=== PATIENT | female | born 1965 | race Caucasian/White ===

== ENCOUNTER 2020-04-01 13:15 | Outpatient (CLI) | payer BC, SELFPAY ==
--- NOTE | ~2020-04-01 | MM_ITS ---
EXAMINATION: MM screening gauri BI w patt HISTORY: Screening mammogram TECHNIQUE: Craniocaudal and mediolateral oblique 3-D tomosynthesis images were obtained and synthetic 2-D images were generated. CAD analysis was submitted and interpreted. COMPARISON: 03/18/2019, 03/15/2018, 02/08/2017 bilateral digital screening mammogram examinations BREAST PARENCHYMAL COMPOSITION: There are scattered areas of fibroglandular density. FINDINGS: Stable benign intramammary lymph nodes. There is no evidence of suspicious mass, calcificat ion, or architectural distortion to suggest malignancy in either breast. There has been no suspicious interval change. IMPRESSION: 1. No mammographic evidence of malignancy. 2. Recommend routine screening mammography in one year. BI-RADS Category 2: Benign finding(s). Reviewed, dictated and finalized at location A.
== END 2020-04-01 13:16 | disposition home or self-care (01) ==
LOC: ANHIMG 13:19
PROVIDERS: PCP Internal Medicine; Visit Provider Nurse Practitioner
DX: Z12.31 Encounter for screening mammogram for malignant neoplasm of breast (principal)
CPT/HCPCS: 77063; 77067

== ENCOUNTER 2021-06-01 08:49 | Outpatient (CLI) | payer BC, SELFPAY ==
--- NOTE | ~2021-06-01 | MM_ITS ---
EXAMINATION: MM screening gauri BI w patt HISTORY: Screening TECHNIQUE: Craniocaudal and mediolateral oblique 3-D tomosynthesis images were obtained and synthetic 2-D images were generated. CAD analysis was submitted and interpreted. COMPARISON: Comparison to multiple prior studies sequentially, with oldest reviewed study dated 06/14. BREAST PARENCHYMAL COMPOSITION: There are scattered areas of fibroglandular density. FINDINGS: There is no evidence of suspicious mass, calcification, or architectural distortion to sugg est malignancy in either breast. There has been no suspicious interval change. IMPRESSION: 1. No mammographic evidence of malignancy. 2. Recommend routine screening mammography in one year. BI-RADS Category 1: Negative Reviewed, dictated and finalized at location A. 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
--- NOTE | ~2021-06-01 | DEXA_ITS ---
Bone Density Report Name: RAHEL OWENS Age: 56 Sex: Female Ethnicity: White Date of : 1965 Indication: postmenopausal; asthma or emphysema; Referring Provider: PRABHU, BRIAN Study: Bone densitometry was performed. Exam Date: June 01, 2021 Accession number: [id number] Bone Density: Region BMD T-score Z-score Classification AP Spine (L2, L3, L4) 1.223 1.3 2.5 Normal Femoral Neck (Left) 0.975 1.1 2.2 Normal Total Hip (Left) 1.246 2.5 3.2 Normal Total Hip Bilateral Avg 1.240 2.5 3.1 Normal Femoral Neck (Right) 0.998 1.3 2.4 Normal Total Hip (Right) 1.233 2.4 3.1 Normal World Health Organization criteria for BMD impression classify patients as: Normal (T-score at or above -1.0), Osteopenia (T-score between -1.0 and -2.5), or Osteoporosis (T-score at or below -2.5). 10-year Fracture Risk: FRAX not reported because: All T-scores for Spine Total, Hip Total, Femoral Neck at or above -1.0 Previous Exams: Region Exam Age BMD T-score BMD Change BMD Change Date g/cm2 vs Baseline vs Previous AP Spine(L2, L3, L4) 06/01/2021 56 1.223 1.3 -0.108(-8.1%)* -0.014(-1.1%) 05/30/2017 52 1.237 1.4 -0.094(-7.0%)* -0.094(-7.0%)* 05/03/2012 46 1.330 2.3 Total Hip(Left) 06/01/2021 56 1.246 2.5 -0.007(-0.6%) 0.002(0.2%) 05/30/2017 52 1.244 2.5 -0.010(-0.8%) -0.010(-0.8%) 05/03/2012 46 1.253 2.6 Total Hip(Right) 06/01/2021 56 1.233 2.4 -0.036(-2.8%)* -0.053(-4.1%)* 05/30/2017 52 1.286 2.8 0.017(1.3%) 0.017(1.3%) 05/03/2012 46 1.269 2.7 *Denotes significance at 95% confidence level, LSC for AP Spine = 0.022 g/cm2, LSC for Total Hip = 0.027 g/cm2 Clinical Information Provided by Patient: Has used the following medications: HRT (i.e. estrogen/hormone therapy), Vitamin D Has the following medical conditions: Asthma or Emphysema Patient maximum height was 61 Menopause Age: 45 No regular weight bearing exercise Does not regularly consume dairy products Onset of menses at age 10 Number of children 2 Impression: The patient has normal bone mass. The BMD for the Total Hip(Right) decreased, changing by -4.1% since the last DXA exam. Discussion: LOW RISK OF FRACTURE; BONE DENSITY IS WELL ABOVE THE MINIMUM DESIRABLE LEVEL AND ABOVE AVERAGE FOR AGE AND SEX AT ALL SKELETAL SITES TESTED. This person's bone density is above expected limits for age and sex. This is rarely clinically significan
== END 2021-06-01 08:50 | disposition home or self-care (01) ==
PROVIDERS: PCP Internal Medicine; Visit Provider Nurse Practitioner
DX: Z12.31 Encounter for screening mammogram for malignant neoplasm of breast (principal); Z78.0 Asymptomatic menopausal state
CPT/HCPCS: 77063; 77067; 77080

== ENCOUNTER 2022-07-25 08:17 | Outpatient (CLI) | payer BC, SELFPAY ==
--- NOTE | ~2022-07-25 | MM_ITS ---
EXAMINATION: MM screening gauri BI w patt HISTORY: Screening mammogram TECHNIQUE: Craniocaudal and mediolateral oblique 3-D tomosynthesis images were obtained and synthetic 2-D images were generated. CAD analysis was submitted and interpreted. COMPARISON: 05/24/2021, 03/24/2020, 03/18/2019 bilateral screening mammogram examinations BREAST PARENCHYMAL COMPOSITION: The breasts are almost entirely fatty. FINDINGS: There is no evidence of suspicious mass, calcification, or architectural distortion to sugg est malignancy in either breast. There has been no suspicious interval change. IMPRESSION: 1. No mammographic evidence of malignancy. 2. Recommend routine screening mammography in one year. BI-RADS Category 1: Negative Reviewed, dictated and finalized at location A. 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
== END 2022-07-25 08:18 | disposition home or self-care (01) ==
PROVIDERS: PCP Internal Medicine; Visit Provider Nurse Practitioner
DX: Z12.31 Encounter for screening mammogram for malignant neoplasm of breast (principal)
CPT/HCPCS: 77063; 77067

== ENCOUNTER 2022-10-06 10:56 | Outpatient (CLI) | payer BC, SELFPAY ==
--- NOTE | ~2022-10-06 | CT_ITS ---
EXAMINATION: CT abdomen pelvis w con DATE: 10/06/2022 15:25 INDICATION: Foreign body. Pelvic pain. TECHNIQUE: Computed tomography (CT) of the abdomen and pelvis was performed with 100 mL Omnipaque 350 intravenous contrast. Automated exposure control and iterative reconstruction technique were employe d. The dose-length product was 1238.13 mGy-cm. COMPARISON: Pelvis ultrasound 10/06/2022 FINDINGS: The visualized portions of the lung bases and is mild atelectasis. No pleural effusion. The heart size is normal. No pericardial effusion. The liver, gallbladder, spleen, pancreas, adrenal gla nds, and left kidney are normal. There is a 2 mm stone in right kidney. There are no dilated loops of bowel. There is diverticulosis of the colon without evidence of diverticulitis. The appendix is norm al. There are no pathologically enlarged lymph nodes. There is no free intraperitoneal fluid. There i s mild thoracic spondylosis and moderate lumbar spondylosis. IMPRESSION: 1. No foreign body. Reviewed, dictated and finalized at location A. IMPRESSION: 1. No foreign body.
--- NOTE | ~2022-10-06 | US_ITS ---
EXAMINATION: US pelvic complete w TV DATE: 10/06/2022 11:48 INDICATION: Postmenopausal bleeding. TECHNIQUE: Multiple transabdominal and transvaginal sonographic images of the pelvis were obtained. COMPARISON: Ultrasound 03/04/17 FINDINGS: TRANSABDOMINAL ULTRASOUND: The uterus measures 7.9 x 4.3 x 2.7 cm. There is no free fluid in the pelvis. The bladder is normal. TRANSVAGINAL ULTRASOUND: The endometrial complex measures 2 mm in thickness. The endocervical canal measures 2 mm in thickness . There is a chronic 8 mm nabothian cyst in the cervix. The ovaries are not visualized. IMPRESSION: 1. No etiology for the patient's symptoms. Reviewed, dictated and finalized at location A.
[2022-10-06 15:15] LABS: Estimated Glomerular Filt Rate > 60
== END 2022-10-06 10:57 | disposition home or self-care (01) ==
PROVIDERS: PCP Internal Medicine; Referring Provider Obstetrics & Gynecology Gynecology; Visit Provider Advanced Practice Midwife
DX: N95.0 Postmenopausal bleeding (principal); T19.2XXA Foreign body in vulva and vagina, initial encounter
CPT/HCPCS: 74177; 76830; 76856; Q9967

== ENCOUNTER 2022-10-06 16:54 | Emergency (ER) | payer BC, SELFPAY ==
[2022-10-06 16:57] VITALS: BP 148/84; PULSE 100; RESP 16; TEMP 36.6; O2SAT 97
--- NOTE | 2022-10-06 17:11 | ED.FEMALEGU ---
HPI - Female Genitourinary General Chief complaint: Urogenital-Female Stated complaint: pt states she has a tampon stuck in her urethra Time Seen by Provider: 10/06/22 17:04 Source: patient Mode of arrival: ambulatory Limitations: no limitations History of Present Illness HPI Narrative: Patient is a 57-year-old female presenting to the emergency department for evaluation of potential retained urethral foreign body. Patient believes that she inserted a tampon into her urethra 2 nights ago. Patient states she went to retrieve the tampon and the string came off. Patient reports some mild discomfort with urination and foreign body sensation. She denies fever, chills, nausea, vomiting, upper abdominal pain. 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 Patient denies any dysuria or hematuria. She denies straining with urination. She denies discharge. Creatinine level prior to CT scan is normal, no sign of obstructive uropathy. I reviewed the patient's vaginal ultrasound as well as the CT scan abdomen/pelvis both of which show no evidence of retained foreign body. Related Data Allergies Allergy/AdvReac Type Severity Reaction Status Date / Time No Known Allergies Allergy Verified 10/06/22 17:49 Review of Systems Review of Systems: CONSTITUTIONAL: Denies fever, chills, or sweats. ENT: Denies rhinorrhea, congestion, sore throat, or otalgia. CARDIOVASCULAR: Denies chest pain, palpitations, or edema. RESPIRATORY: Denies cough or dyspnea. GASTROINTESTINAL: Denies abdominal pain, nausea, vomiting, or diarrhea. GENITOURINARY: Denies dysuria or hematuria. Reports suprapubic discomfort. Reports foreign body sensation. SKIN: Denies rash or itching. MUSCULOSKELETAL: Denies back pain, joint pain, or myalgia. NEUROLOGIC: Denies headache, numbness, or weakness. [facility] Past Medical History Medical History (Updated 10/06/22 @ 18:08 by Alejandra Snow MD) No pertinent past medical history Surgical History Surgical History (Updated 10/06/22 @ 17:24 by Alejandra Snow MD) No pertinent past surgical history Social History Social History (Updated 10/06/22 @ 17:25 by Alejandra Snow MD) Alcohol intake: never Substance use: never Gender identity (if verbalized by the patient): Female Exam Narrative: GENERAL: Awake, alert, conversant, tearful HEAD: Normocephalic, atraumatic. EYES: PERRLA and EOMI. ENT: Nares clear, no rhinorrhea or epistaxis. Mucous membranes moist. NECK: Supple. CHEST: No respiratory distress, breathing even and non labored HEART: Regular rate, sinus rhythm ABDOMEN:Non distended, non tender EXTREMITIES: Normal range of motion. No edema. SKIN: Warm, dry, no rash. NEURO:No focal deficits. Alert and oriented x3 Course Vital Signs Vital signs: Vital Signs Temperature 36.6 C 10/06/22 16:57 Pulse Rate 100 10/06/22 16:57 Respiratory Rate 16 10/06/22 16:57 Blood Pressure 148/84 H 10/06/22 16:57 Pulse Oximetry 97 10/06/22 16:57 Oxygen Delivery Room Air 10/06/22 16:57 Temperature 36.6 C 10/06/22 16:57 Pulse Rate 100 10/06/22 16:57 Respiratory Rate 16 10/06/22 16:57 Blood Pressure 148/84 H 10/06/22 16:57 Pulse Oximetry 97 10/06/22 16:57 Oxygen Delivery Room Air 10/06/22 16:57 MDM - Female Genitourinary MDM Narrative Medical decision making narrative: Medical decision making narrative: -Presentation: Patient presenting as referred from gynecology office with concern for retained urethral foreign body with negative outpatient imaging. -DDX includes but is not limited to: Cystitis, foreign body sensation, urinary retention -Co-morbidities complicating care: None -Social determinants of health: Poor health literacy -External Chart Review: External EMR record reviewed, I personally review
[2022-10-06 17:55] LABS: Appearance Urine Clear (Clear); Bilirubin Urine Negative (Negative); Blood Urine Negative (Negative); Color Urine Yellow (Yellow); Glucose Urine UA 3+ mg/dL (Negative); Ketones Urine Negative (Negative); Leukocyte Esterase Ur Negative LEU/UL (Negative); Nitrate Urine Negative (Negative); Protein Urine Negative (Negative); Urobilinogen Urine 0.2 mg/dL (<2.0)
[2022-10-06 18:00] LABS: Add Urine Microscopic? NO; Specific Grav Ur 1.068 (1.001-1.035)
[2022-10-06 18:24] VITALS: BP 144/87; PULSE 96; RESP 19; O2SAT 98
== END 2022-10-06 18:26 | disposition home or self-care (01) ==
PROVIDERS: Emergency Provider Emergency Medicine; PCP Internal Medicine
DX: Z03.823 Encounter for observation for suspected inserted (injected) foreign body ruled out (principal)
CPT/HCPCS: 81003; 99283

== ENCOUNTER 2023-09-25 13:21 | Outpatient (CLI) | payer BC, SELFPAY ==
--- NOTE | ~2023-09-25 | MM_ITS ---
EXAMINATION: MM screening gauri BI w patt HISTORY: Screening mammogram TECHNIQUE: Craniocaudal and mediolateral oblique 3-D tomosynthesis images were obtained and synthetic 2-D images were generated. CAD analysis was submitted and interpreted. COMPARISON: July 25, 2022, June 01, 2021 bilateral screening mammogram examinations BREAST PARENCHYMAL COMPOSITION: The breasts are almost entirely fatty. FINDINGS: There is no evidence of suspicious mass, calcification, or architectural distortion to sugg est malignancy in either breast. There has been no suspicious interval change. IMPRESSION: 1. No mammographic evidence of malignancy. 2. Recommend routine screening mammography in one year. BI-RADS Category 1: Negative Reviewed, dictated and finalized at location A.
== END 2023-09-25 13:22 | disposition home or self-care (01) ==
LOC: ANHIMG 13:24
PROVIDERS: PCP Internal Medicine; Visit Provider Nurse Practitioner
DX: Z12.31 Encounter for screening mammogram for malignant neoplasm of breast (principal)
CPT/HCPCS: 77063; 77067

== ENCOUNTER 2024-11-01 07:18 | Outpatient (CLI) | payer BC, OTHER, SELFPAY ==
--- NOTE | ~2024-11-01 | DEXA_ITS ---
Bone Density Report Name: RAHEL OWENS Age: 59 Sex: Female Ethnicity: White Date of : 1965 Indication: postmenopausal; screening for osteoporosis; height loss; asthma or emphysema; rheumatoid arthritis; Referring Provider: PRABHU, BRIAN Study: Bone densitometry was performed. Exam Date: November 01, 2024 Accession number: [id number] Bone Density: Region BMD T-score Z-score Classification AP Spine(L1-L4) 1.147 0.9 2.3 Normal Femoral Neck (Left) 0.937 0.8 2.1 Normal Total Hip (Left) 1.166 1.8 2.7 Normal Femoral Neck (Right) 1.043 1.8 3.0 Normal Total Hip (Right) 1.224 2.3 3.2 Normal Total Hip Mean 1.195 2.1 3.0 Normal World Health Organization criteria for BMD impression classify patients as: Normal (T-score at or above -1.0), Osteopenia (T-score between -1.0 and -2.5), or Osteoporosis (T-score at or below -2.5). 10-year Fracture Risk: FRAX not reported because: All T-scores for Spine Total, Hip Total, Femoral Neck at or above -1.0 Clinical Information Provided by Patient: Has rheumatoid arthritis Has used the following medications: HRT (i.e. estrogen/hormone therapy), Vitamin D Has the following medical conditions: Asthma or Emphysema Patient maximum height was 62 Menopause Age: 45 Drinks caffeinated beverages Onset of menses at age 10 Number of children 2 Impression: The patient has normal bone mass. Discussion: LOW RISK OF FRACTURE; BONE DENSITY IS WELL ABOVE THE MINIMUM DESIRABLE LEVEL AND ABOVE AVERAGE FOR AGE AND SEX AT ALL SKELETAL SITES TESTED. This person's bone density is above expected limits for age and sex. This is rarely clinically significant, but should be pursued if there are significant musculoskeletal complaints. The patient should follow a healthful lifestyle (good nutrition with adequate calcium and vitamin D, and appropriate weight-bearing exercise). Follow-Up: Consider repeating this study in 5 years or sooner if there is some new clinical indication. Reported by: MARIO on 11/01/2024 8:08:00 AM. Reviewed, dictated and finalized at location A.
--- NOTE | ~2024-11-01 | MM_ITS ---
EXAMINATION: MM screening gauri BI w patt HISTORY: Screening TECHNIQUE: Craniocaudal and mediolateral oblique 3-D tomosynthesis images were obtained and synthetic 2-D images were generated. CAD analysis was submitted and interpreted. COMPARISON: Comparison to multiple prior studies sequentially, with oldest reviewed study dated 03/05. BREAST PARENCHYMAL COMPOSITION: Not Dense: The breasts are almost entirely fatty. FINDINGS: There is no evidence of suspicious mass, calcification, or architectural distortion to sugg est malignancy in either breast. There has been no suspicious interval change. IMPRESSION: 1. No mammographic evidence of malignancy. 2. Recommend routine screening mammography in one year. BI-RADS Category 1: Negative Reviewed, dictated and finalized at location A.
--- OUTSIDE RECORDS SUMMARY | 2024-11-01 07:26 | XMS_ITS | Continuity of Care Document ---
Author Organization [employer] [place] Address [address] [place] [address] Phone Care Team Providers Care Geomagnetist Name Role Phone Chey Newton DO Unavailable Unavailable Allergies, Adverse Reactions, Alerts Substance Reaction Status Criticality No Known Allergies Active No Inform ation Medications Medication Instructions Dosage Effective Dates (start - stop) Status Comments furosemide 40 mg tablet take 1 tablet by oral route every day 40 MG - Active Rybelsus 3 MG Oral Tablet TAKE 1 TABLET BY MOUTH EVERY DAY IN THE MORNING 30 MINUTES BEFORE ANY FOOD, DRINK, OR MEDICATION WITH NO MORE THAN 4OZ OF PLAIN WATER - Active pioglitazone 30 mg tablet take 1 tablet by oral route every day 30 MG - Active DEXCOM G7 SENSOR MIS CHANGE SENSOR EVERY 10 DAYS ALTERNATING SITES - Active Jardiance 25 mg tablet TAKE 1 TABLET BY MOUTH ONCE DAILY IN THE MORNING - Active PA approved 08/03/24 - 08/13/25 Wellbutrin XL 150 mg 24 hr tablet, extended release Take 1 tablet by mouth once daily - Active VITAMIN D2 (ERGO) 1.25MG CAP Take 1 capsule by mouth once a week - Active glimepiride 4 mg tablet TAKE 1TABLET BY MOUTH TWICE DAILY WITH BREAKFAST AND WITH SUPPER - Active new dose atorvastatin 20 mg tablet TAKE 1 TABLET BY MOUTH ONCE DAILY IN THE EVENING. - Active metFORMIN HCl 1000 MG Oral Tablet TAKE 1 TABLET BY MOUTH TWICE DAILY WITH MORNING MEAL AND WITH EVENING MEAL - Active Chlorthalidone 25 MG Oral Tablet Take 1 tablet by mouth once daily - Active Dexcom G7 Program Manager Please check the BS daily - Active please cancelled the Sensor triamcinolone acetonide 0.1 % topical cream apply by topical route 2 times every day a thin layer to the affected area(s) 0.00 - Active Zyrtec 10 mg tablet take 1 tablet by oral route every day 10 MG - Active progesterone micronized 100 mg capsule take 1 capsule by oral route daily at bedtime - Active Procedures Procedure Date MED LIST DOCD IN [facility] OFFICE [id number] BODY MASS INDEX DOCD SYST BP LT 130 MM HG DIAST BP 80-89 MM HG GENERAL HEALTH PANEL HEMOGLOBIN A1C HGA1C, GLYCO LIPID PANEL MICROALBUMIN, QN (URINE) CREATININE, (U-R) VITAMIN D, 25-HYDROXY MED LIST DOCD IN [facility] ROUTINE VENIPUNCTURE IA PREVENTATIVE-EST: 40-64 BODY MASS INDEX DOCD SYST BP LT 130 MM HG DIAST BP < 80 MM HG HEMOGLOBIN A1C HGA1C, GLYCO MICROALBUMIN, QN (URINE) CREATININE, (U-R) Brief Emotional/Behavioral A ssessment, With Scoring/Doct, Per Stndrd Instrument Clin depression screen doc ROUTINE [place]ENIPUNCTURE [place] OFFICE [id number] BODY MASS INDEX DOCD SYST BP GE 130 - 139MM HG DIAST BP 80-89 MM HG GENERAL HEALTH PANEL HEMOGLOBIN A1C HGA1C, GLYCO URINALYSIS, REFLEX (UA) VITAMIN D, 25-HYDROXY ROUTINE VENIPUNCTURE [place] OFFICE [id number] [facility] 130 MM HG DIAST BP < 80 MM HG GENERAL HEALTH PANEL HEMOGLOBIN A1C HGA1C, GLYCO LIPID PANEL MICROALBUMIN, QN (URINE) CREATININE, (U-R) URINALYSIS, REFLEX (UA) VITAMIN D, 25-HYDROXY ROUTINE VENIPUNCTURE [place] OFFICE [id number] Visit Complexity Inherent To E/M 2023 [facility] SY[facility] BP GE 130 - 139MM HG DIAST BP 80-89 MM HG GENERAL HEALTH PANEL HEMOGLOBIN A1C HGA1C, GLYCO LIPID PANEL URINALYSIS, REFLEX (UA) Pt inelig neg scrn depres ROUTINE VENIPUNCTURE [place] OFFICE [id number] BODY MASS [facility] BP GE 130 - 139MM HG DIAST BP 80-89 MM HG GENERAL HEALTH PANEL HEMOGLOBIN A1C HGA1C, GLYCO LIPID PANEL MICROALBUMIN, QN (URINE) CREATININE, (U-R) URINALYSIS, REFLEX (UA) VITAMIN D, 25-HYDROXY Pt inelig neg scrn depres ROUTINE VENIPUNCTURE [place] OFFICE [id number]-[id number] BODY MASS INDEX DOCD Britton-19-2023 SYST BP LT 130 MM HG DIAST BP < 80 MM HG COVID-19, Amplified Probe Technique INFLUENZA DNA AMP PROBE OFFICE [id number] GENERAL HEALTH PANEL CREATINE KINASE, TOTAL (CPK,CK) 022 HEMOGLOBIN A1C HGA1C, GLYCO LIPID PANEL MICROALBUMIN, QN (URINE) CREATININE, (U-R) ROUTINE VENIPUNCTURE OFFICE [id number] BODY MASS INDEX DOCD SYST BP GE 130 - 139MM HG DIAST BP < 80 MM HG FORM CHARGE Pt inelig neg scrn depres GENERAL HEALTH PANEL CREATINE KINASE, TOTAL (CPK,CK) 022 HEMOGLOBIN A1C HGA1C, GLYCO LIPID PANEL MICROALBUMIN, QN (URINE) CREATININE, (U-R) PARATHYROID HORMONE (PTH) VITAMIN D, 25-HYDROXY ROUTINE VENIPUNCTURE OFFICE [id number] BODY MASS INDEX DOCD SYST BP GE 130 - 139MM HG DIAST BP 80-89 MM HG OFFICE DQIIT-XUE-[id number] BODY MASS INDEX DOCD SYST BP LT 130 MM HG DIAST BP 80-89 MM HG CBC, INC PLATELETS AND DIFFERENTIAL COMPREHEN METABOLIC PANEL CMP HEMOGLOBIN A1C HGA1C, GLYCO MICROALBUMIN, QN (URINE) CREATININE, (U-R) VITAMIN D, 25-HYDROXY ROUTINE VENIPUNCTURE Pt inelig neg scrn depres GENERAL HEALTH PANEL HEMOGLOBIN A1C HGA1C, GLYCO LIPID PANEL PARATHYROID HORMONE (PTH) URINALYSIS, REFLEX (UA) VITAMIN D, 25-HYDROXY ROUTINE VENIPUNCTURE OFFICE [id number]-[id number] BODY MASS INDEX DOCD SYST BP GE 130 - 139MM HG DIAST BP 80-89 MM HG Brief Emotional/Behavioral A ssessment, With Scoring/Doct, Per Stndrd Instrument Clin depression screen doc GENERAL HEALTH PANEL HEMOGLOBIN A1C HGA1C, GLYCO LIPID PANEL MICROALBUMIN, QN (URINE) CREATININE, (U-R) URINALYSIS, REFLEX (UA) VITAMIN D, 25-HYDROXY ROUTINE VENIPUNCTURE OFFICE [id number] BODY MASS INDEX DOCD SYST BP GE 130 - 139MM HG DIAST BP < 80 MM HG OFFICE [id number]-[id number] BODY MASS INDEX DOCD SYST BP >= 140 MM HG6 IT DIAST BP 80-89 MM HG URINALYSIS, DIPSTICK (UA) - Office Lab A OFFICE [id number] X-RAY EXAM OF SHOULDER, COMPLETE 2018 OFFICE [id number]-[id number]-[id number] EXTREMITY STUDY/BILATERAL ([place]) 019 Advance Directives Directive Yes / No Effective Date File Name Life Support Not Answered N/A N/A Intubation Not Answered N/A N/A Antibiotics Not Answered N/A N/A IV Fluid Support Not Answered N/A N/A Tube Feed Not Answered N/A N/A Other Directive N/A N/A WARNING:The information contained in this section is historical and is provided for information only and does not constitute a legal document or any assurance that the information is still accurate. Please verify the information with the montilla of the legal document before using it for clinical purposes. Encounters Encounter Description Practice Location Reason(s) For Visit Diagnoses Date Provider Providers Copied on Encounter [facility], [address], [place], [place], [address] , [place] tel: [phone] [facility] No Information 5 Lamar Guerrier. [address] [place] [address], [id number], [place]. tel:[phone] OFFICE KKIRV-FJO-GZ PANDED [facility], [address], [place], [place], [address] , [place] tel: [phone] [facility] acute visit (chief complaint) Body mass index [BMI] 40.0-44.9, adultStrain of right knee, initial encounter 5 Iesha Porter. [address] [place] [address], [id number], [place]. tel:[phone] Referring Provider: Chey Hightower, [address] [place] [address], [address] . tel:[phone] [facility], [address], [place], [place], [address] , [place] tel: [phone] [facility] No Information 5 Iesha Porter. [address] [place] [address], [id number], [place]. tel:[phone] [facility], [address], [place], [place], [address] , [place] tel: [phone] [facility] No Information 5 Stephanie Renee. [address] [place] [address], [address], [place]. tel:[phone] [facility], [address], [place], [place], [address] , [place] tel: [phone] [facility] No Information 5 Luisradha Sargentn. [address] [facility], [address] [address], [place], [place], [id number], . tel:[phone] Referring Provider: Víctor Brown, [address] [place] [address], [address]. tel:[phone] PREVENTATIVE -EST: 40-64 [facility], [address], [place], [place], [address] , tel: [phone] [facility] Preventive exam (chief complaint)C hronic Conditions (chief complaint)c hronic conditions (chief complaint) Class 3 ObesityBody mass index [BMI] 40.0-44.9, adultEssential (primary) hypertensionType 2 diabetes mellitus with diabetic neuropathy, unspecifiedMajor depressive disorder, recurrent, in partial remissionVitamin D deficiency, unspecifiedOther hyperlipidemiaWe ll adult exam 5 Stephanie Renee. [address] [place] [address], [address], [place]. [phone] Referring Provider: Chey Hightower, [address] [place] [address], [address] . tel:[phone] [facility], [address], [place], [place], [address] , [place] tel: [phone] [facility] No Information 5 Lamar Guerrier. [address] [place] [address], [id number], [place]. tel: [phone] [facility], [address], [place], [place], [address] , [place] tel: [phone] [facility] No Information 5 Lamar Guerrier. [address] [place] [address], [id number], [place]. tel:[phone] [facility], [address], [place], [place], [address] , [place] tel: [phone] [facility] No Information 5 Luis Vinicio. [address] [address], [place], [place], [id number], [place]. tel:[phone] Referring Provider: Charlotte Julian, [address] [place] [address], [address] . tel:[phone] OFFICE VTNFE-BZM-MJ [facility], [address], [place], [place], [address] , [place] tel: [phone] [facility] 3 month check up (chief complaint)C hronic Conditions (chief complaint) Morbid (severe) obesity due to excess caloriesBody mass index [BMI] 40.0-44.9, adultEssential (primary) hypertensionType 2 diabetes mellitus with diabetic neuropathy, unspecifiedMajor depressive disorder, recurrent, in partial remission 5 Iesha Porter. [address] [place] [address], [id number], [place]. tel:[phone] Referring Provider: Chey Hightower, [address] [place] [address], [address] . tel:[phone] [facility], [address], [place], [place], [address] , [place] tel: [phone] [facility] No Information 4 Iesha Porter. [address] [place] [address], [id number], [place]. tel:[phone] [facility], [address], [place], [place], [address] , [place] tel: [phone] [facility] No Information 4 Stephanie Renee. [address] [place] [address], [address], [place]. tel:[phone] [facility], [address], [place], [place], [address] , [place] tel: [phone] [facility] No Information 4 Luis Vinicio. [address], [address], [id number], [place]. tel:[phone] Referring Provider: Víctor Brown, [address] [place] [address], [address]. tel:[phone] OFFICE DUUFC-PDE-XC [facility], [address], [place], [place], [address] , [place] tel: [phone] [facility] 6 month (chief complaint)C hronic Conditions (chief complaint) Class 3 ObesityBody mass index [BMI] 40.0-44.9, adultType 2 diabetes mellitus with diabetic neuropathy, unspecifiedVitam in D deficiency, unspecifiedEssen tial (primary) hypertensionOthe r hyperlipidemia 4 Stephanie Renee. [address] [place] [address], [address], [place]. tel:[phone] Referring Provider: Chey Hightower, [address] [place] [address], [address] . tel:[phone] [facility], [address], [place], [place], [address] , [place] tel: [phone] [facility] No Information 0 4 Iesha Porter. [address] [place] [address], [id number], [place]. tel: [phone] [facility], [address], [place], [place], [address] , [place] tel: [phone] [facility] No Information 4 Lamar Guerrier. [address] [place] [address], [id number], [place]. tel:[phone] [facility], [address], [place], [place], [address] , [place] tel: [phone] [facility] No Information 3 4 Luis Vinicio. [address] [facility], [address], [id number], [place]. tel:[phone] Referring Provider: Víctor Brown, [address] [place] [address], [address]. tel:[phone] OFFICE [facility], [address], [place], [place], [address] , tel: [phone] [facility] 4 month (chief complaint)C hronic Conditions (chief complaint) Class 3 ObesityBody mass index [BMI] 40.0-44.9, adultType 2 diabetes mellitus with diabetic neuropathy, unspecifiedEssen tial (primary) hypertensionVita min D deficiency, unspecifiedOther hyperlipidemiaFi nger pain, right Sep- 4 Stephanie Renee. [address] [place] [address], [address], [place]. tel:[phone] Referring Provider: Chey Hightower, [address] [place] [address], [address] . tel:[phone] [facility], [address], [place], [place], [address] , [place] tel: [phone] [facility] No Information 4 Lamar Guerrier. [address] [place] [address], [id number], [place]. tel:[phone] [facility], [address], [place], [place], [address] , tel: [phone] [facility] No Information 3 Luis Mooney. [address], [id number], . tel:[phone] Referring Provider: Charlotte Julian, [address] [place] [address], [address] . tel:[phone] OFFICE YECBW-NWV-FT [facility], [address], [place], [place], [address] , tel: [phone] [facility] Chronic Conditions (chief complaint) Morbid (severe) obesity due to excess caloriesBody mass index [BMI] 40.0-44.9, adultEssential (primary) hypertensionType 2 diabetes mellitus with diabetic neuropathy, unspecifiedOther hyperlipidemia 3 Iesha Porter. [address] [place] [address], [id number], . tel:[phone] Referring Provider: Chey Hightower, [address] [place] [address], [address] . tel:[phone] [facility], [address], [place], [place], [address] , tel: [phone] [facility] No Information [address] [place] [address], [id number], . tel:[phone] Referring Provider: Charlotte Julian, [address] [place] [address], [address] . tel:[phone] OFFICE XDKRE-POT-EI [facility], [address], [place], [place], [address] , [place] tel: [phone] [facility] Chronic Conditions (chief complaint) Body mass index [BMI] 39.0-39.9, adultEssential (primary) hypertensionOthe r hyperlipidemiaVi tamin D deficiency, unspecifiedType 2 diabetes mellitus with diabetic neuropathy, unspecifiedMajor depressive disorder, recurrent, in partial remissionMorbid (severe) obesity due to excess caloriesFamily history of ischemic heart disease and other diseases of the circulatory system 3 Iesha Porter. [address] [place] [address], [id number], [place]. tel:[phone] Referring Provider: Chey Hightower, [address] [place] [address], [address] . tel:[phone] [facility], [address], [place], [place], [address] , [place] tel: [phone] [facility] fever and chills (chief complaint) Fever and chillsSinus drainage 3 Lamar Guerrier. [address] [place] [address], [id number], . tel:[phone] Referring Provider: Chey Hightower, [address] [place] [address], [place], [address] . tel:[phone] OFFICE HYDPB-ZHC-ZW [facility], [address], [place], [place], [address] , tel: [phone] [facility] 6 month appt (chief complaint)O ther (chief complaint)C hronic Conditions (chief complaint) Morbid (severe) obesity due to excess caloriesType 2 diabetes mellitus with diabetic neuropathy, without long-term current use of insulinEssential hypertensionMajo r depressive disorder, single episode, unspecifiedFamil y history of ischemic heart disease and other diseases of the circulatory systemOther hyperlipidemiaBo dy mass index [BMI] 40.0-44.9, adult 2 Lamar Guerrier. [address] [place] [address], [id number], . tel:[phone] Referring Provider: Chey Hightower, [address] [place] [address], [place], [address] . tel:[phone] [facility], [address], [place], [place], [address] , tel: [phone] [facility] No Information 2 Lamar Guerrier. [address] [place] [address], [id number], [place]. tel:[phone] Referring Provider: Chey Hightower, [address] [place] [address], [address] . tel:[phone] OFFICE DEDTP-XJK-SP [facility], [address], [place], [place], [address] , tel: [phone] [facility] 6 month appt (chief complaint)O ther (chief complaint)C hronic Conditions (chief complaint) Morbid (severe) obesity due to excess caloriesType 2 diabetes mellitus with diabetic neuropathy, without long-term current use of insulinVitamin D deficiencyOther hyperlipidemiaMa asm depressive disorder, single episode, unspecifiedEssen tial hypertensionFami ly history of ischemic heart disease and other diseases of the circulatory systemBody mass index [BMI] 40.0-44.9, adult 2 Lamar Guerrier. [address] [place] [address], [id number], [place]. tel:[phone] Referring Provider: Chey Hightower, [address] [place] [address], [address] . tel:[phone] [facility]ICE [facility], [address], [place], [place], [address] , tel: [phone] [facility] Chronic Conditions (chief complaint) Body mass index [BMI] 40.0-44.9, adultMorbid (severe) obesity due to excess caloriesEssentia l hypertensionType 2 diabetes mellitus with diabetic neuropathy, without long-term current use of insulinMajor depressive disorder, single episode, unspecifiedVitam in D deficiencyOther hyperlipidemiaSc reening for malignant neoplasm of colonEncounter for screening mammogram for malignant neoplasm of breast 1 Stephanie Renee. [address] [place] [address], [address], . tel:[phone] Referring Provider: Chey Hightower, [address] [place] [address], [address] . tel:[phone] OFFICE [facility]DFH[facility]NP[facility], [address], [place], [place], [address] , tel: [phone] [facility] Chronic Conditions (chief complaint) Body mass index (BMI) 40.0-44.9, adultMorbid (severe) obesity due to excess caloriesType 2 diabetes mellitus with diabetic neuropathy, without long-term current use of insulinMixed hyperlipidemiaMa sam depressive disorder, single episode, unspecifiedEssen tial hypertensionLeft arm painVitamin D deficiency Apr-0 1 Iesha Porter. [address] [place] [address], [id number], . tel:[phone] Referring Provider: Chey Hightower, [address] [place] [address], [address] . tel:[phone] OFFICE [facility]SSAQ[facility], [address], [place], [place], [address] , tel: [phone] [facility] Chronic Conditions (chief complaint) Body mass index (BMI) 40.0-44.9, adultMorbid (severe) obesity due to excess caloriesType 2 diabetes mellitus with diabetic nephropathy, without long-term current use of insulinMixed hyperlipidemiaMa sam depressive disorder, single episode, unspecifiedEssen tial hypertensionVagi nal irritationLeft arm pain Sep-0 0 Epplin Ora. [address] [place] [address], [id number], . tel:[phone] Referring Provider: Chey Hightower, [address] [place] [address], [address] . tel:[phone] [facility]ICE [facility], [address], [place], [place], [address] , tel: [phone] [facility] Chronic Conditions (chief complaint) Body mass index (BMI) 40.0-44.9, adultMorbid (severe) obesity due to excess caloriesType 2 diabetes mellitus with diabetic nephropathy, without long-term current use of insulinEssential hypertensionMajo r depressive disorder, single episode, unspecifiedMixed hyperlipidemia Bruno-2 0 0 Epplin Ora. [address] [place] [address], [id number], [place]. tel:[phone] Referring Provider: Chey Hightower, [address] [place] [address], [place], [address] . tel:[phone] [facility]ICE [facility], [address], [place], [place], [address] , tel: [phone] [facility] (L) shoulder pain, UTI sx (chief complaint) UTI symptomsAcute pain of left shoulderBody mass index (BMI) 40.0-44.9, adultMorbid (severe) obesity due to excess calories 9 Lamar Guerrier. [address] [place] [address], [id number], [place]. tel:[phone] Referring Provider: Chey Hightower, [address] [place] [address], [address] . tel:[phone] OFFICE [facility], [address], [place], [place], [address] , tel: [phone] [facility] Chronic Conditions (chief complaint) Body mass index (BMI) 40.0-44.9, adultMorbid (severe) obesity due to excess caloriesEncounte r for screening for malignant neoplasm of colonEssential hypertensionType 2 diabetes mellitus with diabetic nephropathy, without long-term current use of insulinDecreased pedal pulses 9 Evon Payan. [address] [place] [address], [id number], [place]. [phone] Referring Provider: Chey Hightower, [address] [place] [address], [address] . tel:[phone] [facility], [address], [place], [place], [address] , tel: [phone] [facility] Body mass index (BMI) 40.0-44.9, adultMorbid (severe) obesity due to excess caloriesMajor depressive disorder, single episode, unspecifiedEssen tial hypertensionVita min D deficiencyType 2 diabetes mellitus with diabetic nephropathy, without long-term current use of insulin 9 Iesha Porter. [address] [place] [address], [id number], [place]. tel:[phone] Referring Provider: Chey Hightower, [address] [place] [address], [address] . tel:[phone] [facility], [address], [place], [place], [address] , tel: [phone] [facility] Body mass index (BMI) 45.0-49.9, adultMorbid (severe) obesity due to excess caloriesType 2 diabetes mellitus without complication, without long-term current use of insulinEssential hypertensionMajo r depressive disorder, single episode, unspecified 8 Iesha Porter. [address] [place] [address], [id number], . tel:[phone] Referring Provider: Chey Hightower, [address] [place] [address], [address] . tel:[phone] [facility], [address], [place], [place], [address] , tel: [phone] [facility] Medicine Body mass index (BMI) 45.0-49.9, adultMorbid (severe) obesity due to excess caloriesType 2 diabetes mellitus without complication, without long-term current use of insulinMixed hyperlipidemiaEs sential hypertensionVita min D deficiency 8 Iesha Porter. [address] [place] [address], [id number], [place]. tel:[phone] Referring Provider: Chey Hightower, [address] [place] [address], [address] . tel:[phone] [facility], [address], [place], [place], [address] , tel: [phone] [facility] Morbid (severe) obesity due to excess caloriesMixed hyperlipidemiaEs sential hypertension Apr-0 5201 8 Dawn Kang. [address] [place] [address], [address], [place], [address], [place]. tel:[phone] Referring Provider: Pearl King, [address] [facility] [address] [facility], [place], [place], [facility]. tel:[phone] [facility], [address], [place], [place], [address] , tel: [phone] [facility] Hypovitaminosis D Dec-0 7 Dawn Kang. [address] [facility], [address], [facility], . [phone] Referring Provider: Pearl King, [address] [facility] [address] [place] [address], [facility]. tel:[phone] [facility] [facility], [address], [place], [place], [id number] , tel: [phone] [facility] Internal Medicine Essential hypertensionMixe d hyperlipidemiaDi abetes type 2, controlledHypovi taminosis D Dawn Kang. [address] [place] [address], [facility], . tel:[phone] Referring Provider: Pearl King, [address] [place] [address], [facility]. tel:[phone] [facility], [address], [place], [place], [address] , tel: [phone] [facility] Internal Medicine Diabetes type 2, controlledMixed hyperlipidemiaEs sential hypertension Sep-0 Dawn Kang. [address] [place] [address], [address], [facility], [place]. tel:[phone] Referring Provider: Pearl King, [address] [place] [address], [facility]. tel:[phone] [facility], [address], [place], [place], [address] , tel: [phone] [facility] Internal Medicine Mixed hyperlipidemiaDi abetes type 2, controlledMorbid obesity due to excess calories 7 Dawn Kang. [address] [facility], [address], [facility], [place]. tel:[phone] Referring Provider: Pearl King, [address], [place], [address]. tel:[phone] [facility], [address], [place], [place], [address] , tel: [phone] [facility] Medicine Left lateral abdominal pain 7 Dawn Kang. [address] [facility], [address], [place], [address], [place]. tel:[phone] [facility], [address], [place], [place], [address] , [place] tel: [phone] [facility] Essential hypertensionDiab etes type 2, controlledMixed hyperlipidemia 6 Dawn Kang. [address] [facility] [address] [facility], [address], [place], [address], [place]. [phone] Referring Provider: Pearl King, [address], [place], [facility]. tel:[phone] [facility], [address], [place], [place], [address] , [place] tel: [phone] [facility] Diabetes type 2, controlledMajor depressive disorder, single episode, unspecifiedHypov itaminosis DWell woman examEncounter for screening mammogram for malignant neoplasm of breast 6 Dawn Kang. [address] [facility], [address] [place] [address], [address], [place]. tel:[phone] Referring Provider: Paerl King, [address], [place], [facility]. tel:[phone] [facility], [address], [place], [place], [address] , tel: [phone] [facility] Encounter for screening for other disorderRight sided facial painEssential hypertensionDiab etes type 2, controlledHyperl ipidemia associated with type 2 diabetes mellitusMorbid obesity due to excess calories 6 Dawn Kang. [address] [facility], [address], [place], [address], [place]. tel:[phone] Referring Provider: Pearl King, [address], [place], [address]. tel:[phone] [facility] [employer], [address], [place], [place], [address] , [place] tel: [phone] [facility] Diabetes mellitus type 2, uncontrolledOthe r and unspecified hyperlipidemiaDe pressive disorder, not elsewhere classifiedMorbid obesity 5 Michelet Lopez. [address], [place], [place], [address]. tel:[phone] Referring Provider: John Tafoya, [address], [place], [address] . tel:[phone] [employer], [address], [place], [place], [address] , [place] tel: [phone] [facility] Type II diabetes mellitus with neurological manifestations, uncontrolledOthe r and unspecified hyperlipidemiaDi arrheaPolyneurop athy in diabetes 4 Michelet Lopez. [address], [place], [place], [address]. tel:[phone] Referring Provider: John Tafoya, [address], [place], [address] . tel:[phone] [employer], [address], [place], [place], [address] , [place] tel: [phone] [facility] IMPAIRED FASTING GLUCOSEOther and unspecified hyperlipidemia 2 4 Michelet Lopez. [address], [place], [place], [address]. tel:[phone] [employer], [address], [place], [place], [address] , [place] tel: [phone] [facility] Diabetic NeuropathyPolyne uropathy in diabetesOther and unspecified hyperlipidemiaMo rbid obesity 4 Michelet Lopez. [address], [place], [place], [address]. tel:[phone] Referring Provider: John Tafoya, [address], [place], [address] . tel:[phone] [employer], [address], [place], [place], [address] , tel: [phone] [facility] HTNMixed HyperlipidemiaDi abetic NeuropathyIMPAIR ED FASTING GLUCOSE 7 4 Trame Gary. [address], [address], [place], [place], [address]. tel:[phone] [employer], [address], [place], [place], [address] , [place] tel: [phone] [facility] Other and unspecified hyperlipidemiaDi abetic NeuropathyPolyne uropathy in diabetes 2201 3 Trame Gary. [address], [address], [place], [place], [address]. tel:[phone] [employer], [address], [place], [place], [address] , [place] tel: [phone] [facility] Diabetes with neurological manifestations, type II or unspecified type, not stated as uncontrolledPoly neuropathy in diabetesOther and unspecified hyperlipidemiaMo rbid obesity 8201 3 Trame Gary. [address], [address], [place], [place], [address]. tel:[phone] Referring Provider: John Tafoya, [address], [place], [address] . tel:[phone] [employer], [address], [place], [place], [address] , [place] tel: [phone] [facility] Diabetes with neurological manifestations, type II or unspecified type, not stated as uncontrolledPoly neuropathy in diabetesOther and unspecified hyperlipidemiaMo rbid obesity 4201 2 Trame Gary. [address], [place], [place], [address]. tel:[phone] Referring Provider: John Tafoya, [address] [facility] [address], [place], [address] . tel:[phone] [facility], [address], [place], [place], [address] , [place] tel: [phone] [facility] DM neuro manif type IIPolyneuropathy in diabetesMorbid obesityBMI 40.0-44.9, adultHTN (hypertension)El evated lipidsLeft arm pain Sep-2 0-201 2 Alfonso Alicia. [address] [facility], [address], [place], [place], [address]. tel:[phone] Referring Provider: John Tafoya, [address] [facility] [address], [place], [address] . tel:[phone] [facility], [address], [place], [place], [address] , [place] tel: [phone] [facility] ABDMNAL PAIN EPIGASTRIC Romulo-0 5-201 1 [employer]. [address] [facility], [place], [address], [place]. [facility], [address], [place], [place], [address] , [place] tel: [phone] [facility] HYPERLIPIDEMIA NEC/NOSMORBID OBESITYCHOLELITH W CHOLECYS NEC Britton-2 9-201 1 Trame John. [address] [facility], [address], [place], [place], [address]. tel: [phone] [facility], [address], [place], [place], [address] , [place] tel: [phone] [facility] HYPERTENSION NOS Nov-1 9-201 0 Trame Gary. [address] [facility], [address], [place], [place], [address]. tel:[phone] [facility], [address], [place], [place], [address] , [place] tel: [phone] [facility] MIXED HYPERLIPIDEMIA Oct-1 6-200 8 Trame John. [address] , [address], [place], [place], [address]. tel: [phone] [employer], [address], [place], [place], [address] , tel: [phone] [facility] IMPAIRED FASTING GLUCOSE Aug-2 7-200 7 Trame Gary. [address], [place], [place], [address]. tel: [phone] [employer], [address], [place], [place], [address] , [place] tel: [phone] [facility] CERVICALGIA Dec-1 8-200 6 Trame John. [address], [address], [place], [place], [address]. tel: [phone] [employer], [address], [place], [place], [address] , tel: [phone] [facility] BACKACHE NOSACUTE SINUSITIS NOS Sep-0 5-200 3 Trame Gary. [address], [place], [place], [address]. tel: [phone] [employer], [address], [place], [place], [address] , tel: [phone] [facility] TENSION HEADACHE Mar-0 7-200 3 Trame John. [address], [place], [place], [address]. tel: [phone] Family History Family Member Type Diagnosis Age At Onset Close relative Problem (finding) Heart disease Mother Problem (finding) coronary arterioscleros is Brother Problem (finding) coronary arterioscleros is Mother Problem passed after fall Mother Problem Cancer, lung Mother Problem dementia, COPD Immunizations Vaccine Date Status Comments Pfizer-BioNTech COVID19 Vaccine, 0.3mL per dose, 2 doses, administered 21 days apart administered Note: Roxanna SMITH ; Source: Other Provider Pfizer-BioNTech COVID19 Vaccine, 0.3mL per dose, 2 doses, administered 21 days apart administered Note: Roxanna SMITH ; Source: Other Provider Fluzone Quad, split virus, 0.5mL dosage refused Source: New Immuniza tion Record Fluzone High-Dose, high dose , preservative free refused Source: New Immuniza tion Record Influenza, injectable, quadrivalent, preservative free, 3 yrs or older refused Source: New Immuniz ation Record Td (adult) preservative free refused Source: New Immunization Record Pneumococcal polysaccharide PPV23 refused Source: New Immuniza tion Record Zoster refused Source: New Imm unization Record Payers Payer name Insurance type Covered democrat ID Authoriza tion(s) [facility] CI [id number] [place] [id number] [place] [id number] [place] [id number] Social History Type Description Quantity Date Captured Comments Alcohol Use Details Unknown Caffeine Use Details Unknown Tobacco Use Status No Information Smoking Status No Information Sex Female Sexual Orientation Straight or heterosexual Gender Identity Female Chief Complaint And Reason For Visit No Information Reason For Referral Reason For Referral No Information Plan Of Treatment Date Type Action Status Goal Dietary manageme nt education, guidance, and counseling completed Goal Dietary manageme nt education, guidance, and counseling completed Goal Dietary manageme nt education, guidance, and counseling completed Goal Dietary manageme nt education, guidance, and counseling completed Goal Dietary manageme nt education, guidance, and counseling completed Goal Dietary manageme nt education, guidance, and counseling completed Goal Dietary manageme nt education, guidance, and counseling completed Goal Dietary manageme nt education, guidance, and counseling completed Goal Dietary manageme nt education, guidance, and counseling completed Goal Dietary manageme nt education, guidance, and counseling completed Goal Dietary manageme nt education, guidance, and counseling completed Goal Dietary manageme nt education, guidance, and counseling completed Goal Dietary manageme nt education, guidance, and counseling completed Goal Dietary manageme nt education, guidance, and counseling completed Goal Dietary manageme nt education, guidance, and counseling completed Referral Ordered: X-RAY EXAM OF SHOULDER, COMPLETE, MIN 2 VIEWS Left ordered Referral Ordered: EXTREMITY STUDY/BILATERAL (PAYTON) ordered Appointment Anh Hi BOOKED History Of Present Illness Encounter Date Complaint History Of Prese nt Illness acute visit R knee pain:dog pulled her while taking him to the bathroom ( [place] [employer] 95lbs)happened Friday 10/20reports soreness/pain which worsens with activity and improves with restdenies falling Chronic Conditions *See Chronic Conditions HPI Preventive exam Currently pregna nt: no. Patient's menses is absent.Postmenopausal. Pertinent negatives include anxiety and depression. Diet healthy. Patient does not take calcium. Patient reports taking Vitamin D. Patient does not take multivitamins. Patient does not take Folic acid.The patient states Patient's exercise level is moderate and frequency is occasional. The patient does not use tobacco. The patient has not been exposed to passive smoke. The patient has not been exposed to passive vaping. The patient does not drink alcohol. chronic conditions *See Chronic Conditions [facility] 3 month check up Chronic Conditions *See Chronic Conditions HPI Chronic Conditions *See Chronic Conditions HPI 6 month Chronic Conditions *See Chronic Conditions HPI 4 month Patient is here for a 4-month follow-up. I have not seen her in over a year.Since I have seen her her mother . She was caring for her. She appears to be doing well. She has a puppy, Antoine.She says that she is no longer working. She only has insurance for total 18 months which will run out in June.She declines vaccines.I recommended she return in 3 to 4 months for an office visit but prefers to be seen in 6 months.Aj RT 5th fingerPain, bruising, swellingDog pulled her over Chronic Conditions *See Chronic Conditions HPI Chronic Conditions *See Chronic Conditions HPI fever and chills pt. came in tod ay for a covid and influenza test. Covid test was positive. Talk to Dr. Newton, She order Paxlovid, stay hydrated and get plenty of rest. Give us a call if symptoms changes or shortness of breath. Hold the Atorvastatin for 7 days. Pt. stated she understand. Other pt due for:Colon oscopy - pt verbalized she did a Cologuard back in 2020 w/ Dr Chopra A1cEye exam - pt denies recent examFoot examRecent visits:OBGYN - Dr Chopra - Mar 02Future appt:n/aRecent vaccinations:COVID booster - pt refusespt refuses all vaccinationsOutstanding referrals:n/aQuestions:no questions or concerns 6 month appt -Anxiety/depress ionpt reports well controlled w/ Bupropionpt working on getting plenty of rest, staying hydrated, improving nutrition, exercising as tolerated -Diabetespt reports increase urinary frequency, pt does not recall how long since it started increasing.pt denies blurred vision, dry mouthpt does not monitor BG levels at homept compliant w/ medication Eye Exam - pt denies recent test -Hypertensionpt denies headaches, dizziness, nausea, lightheadedness, chest pain, palpitationspt does not monitor BP at homept compliant w/ medication -Obesitypt working on healthier diet choices, exercise as tolerated.Weight gained since last OV: 3.6 lbs Chronic Conditions *See Chronic Conditions HPI Chronic Conditions *See Chronic Conditions HPI 6 month appt -Diabetespt girish es increase urinary frequency, blurred visionpt does not monitor BG levels at homept compliant w/ medication pt denies Eye Exam -Hypertensionpt denies headaches, dizziness, nausea, lightheadedness, chest pain, palpitationspt does not monitor BP at homept compliant w/ medication -Obesitypt not compliant healthier diet choices, exercise as tolerated.Weight gained since last OV: 2.[address] visit s:[facility] - Dr. Chopra - one density/Mammogram - May 2021 [facility] denies [facility] Exam Recent vaccinations:pt denies COVID booster, Pneumo, TD/Tdap, ShingrixQuestions:No questions or concerns Chronic Conditions *See Chronic Conditions HPI Chronic Conditions *See Chronic Conditions HPI Chronic Conditions *See Chronic Conditions HPI Chronic Conditions *See Chronic Conditions HPI (L) shoulder pain, UTI sx Pt. he re for RN visit with report of (L) flank pain radiating into (L) abdomen and (L) pelvis x 1 week. Pt. reports feeling, feverish having nausea and dysuria x 2 days when sx started, with no further sx since. Pt. reports when sx started she began taking left over Augmentin she had on hand. Pt. reports taking 6 doses with noted improvement in sx. Reports that sx are now intermittent and mostly while standing. Drinking water and cranberry juice frequently. Pt. also reports 3 weeks ago pulling a rolling trash can uphill and since then experiencing difficulty lifting (L) arm and occasional shooting pains from (L) shoulder to (L) elbow. Denies currently taking any medication for sx. Urine dip performed, pt. tolerated well. No bruising or swelling noted to (L) shoulder. Pt. unable to perform (L) arm abduction without discomfort, no difficulty performing internal and external rotation. Per Víctor Brown, [employer] urine dip negative, will await cx results. Pt. to continue pushing fluids, take a daily probiotic, and follow a bland diet, advance as tolerates. Will get (L) shoulder x-ray today and call with results. Pt. can take 2-ES Tylenol every 8 hours as needed and apply a cool compress to (L) shoulder PRN for pain. Pt. to call if sx worsen or new sx arise. Pt. voiced understanding. Chronic Conditions *See Chronic Conditions HPI Functional Status Date Functional Assessmen t No Information Instructions Date Instruction Additional Infor ray I recommend getting a knee brace to provide compression. Apply ice in 20 min increments when able. Continue to rest and elevate as much as possible.Call the office if this does not improve after 2 weeks, and we can send an order for physical therapy Related to Strain of right knee, initial encounter Dietary management e ducation, guidance, and counseling Related to Body mass index (BMI) 40.0-44.9, adult Giving encouragement to exercise Related to Body mass index (BMI) 40.0-44.9, adult Make sure you are ea ting well-balanced regular meals throughout the day.Continue with your exercise regimen.Call with any questions or concernsLabs todayReturn in 3 months Related to Class 3 Obesity Vitamin D levels will be checked . Related to Vitamin D deficiency, unspecified A1c today.Continue w earing her Dexcom.There may be little wiggle room since you are not open to increasing Rybelsus or adding on insulin or a different kind of medication. Please work on diet and exercise as well Related to Type 2 diabetes mellitus with diabetic neuropathy, unspecified Glad you are doing w ell on the Wellbutrin.Call if anything worsens or changes Related to Major depressive disorder, recurrent, in partial remission Continue on current medication. Levels checked Related to Other hyperlipidemia Blood pressure is st able on current medication. No changes. Related to Essential (primary) hypertension Personal and family medical history reviewed and updated. Medications reviewed and continue as directed. Continue exercise as tolerated and maintain healthy diet. Discussed weight, diet, exercise, immunizations, and healthy lifestyle.mammo October 31colon- please have OBGYN send us the cologuard reportPap-with Dr. Evans vaccines Related to Well adult exam Giving encouragement to exercise Related to Body mass index (BMI) 40.0-44.9, adult Dietary management e ducation, guidance, and counseling Related to Body mass index (BMI) 40.0-44.9, adult Disease process We will restart your Wellbutrin to help with your depression. Please call the office if your depression worsens Related to Major depressive disorder, recurrent, in partial remission Continue to work on making healthy dietary choices and work on increasing your activity Related to Morbid (severe) obesity due to excess calories We will start Rybels us 3mg daily in addition to your other medications to better manage your diabetes.We will check your A1c again today Related to Type 2 diabetes mellitus with diabetic neuropathy, unspecified Your blood pressure is well controlled today.Continue your current medications.We will check routine labs today.Please call the office with any issues, questions, or concerns prior to your next appointment.Follow up again in September Related to Essential (primary) hypertension Giving encouragement to exercise Related to Body mass index (BMI) 40.0-44.9, adult Disease process Dietary management e ducation, guidance, and counseling Related to Body mass index (BMI) 40.0-44.9, adult We discussed the imp ortance of eating a balanced diet and eating regularly, exercise in the form of walking.Call with any questions or concernsLabs todayVaccines declinedReturn in 3 months Related to Class 3 Obesity We will check A1c to day.You continue to decline injectable medications.I will give you my recommendations on medication adjustments.We discussed the importance of having a consistent daily routine and incorporating exercise. Related to Type 2 diabetes mellitus with diabetic neuropathy, unspecified Continue on current medication. Levels monitored. Related to Other hyperlipidemia Blood pressure manag ed on current medication Related to Essential (primary) hypertension We will check your v itamin D levels today. Related to Vitamin D deficiency, unspecified Disease process Dietary management e ducation, guidance, and counseling Related to Body mass index (BMI) 40.0-44.9, adult Giving encouragement to exercise Related to Body mass index (BMI) 40.0-44.9, adult You can try taping t he finger. Okay to take Tylenol and icing it. Please call if anything worsens.Call with any questions or concernsCBC, CMP, A1c, micro, lipids, vitamin D, UA todayYou declined vaccinesReturn in 6 months per your request Related to Finger pain, right Blood pressure manag ed on current medication. No changes Related to Essential (primary) hypertension We will check vitamin D levels t felicia. Related to Vitamin D deficiency, unspecified Continue on current medication. Will check levels. Related to Other hyperlipidemia Please make sure jamshid t you are eating consistent meals during the day and not skipping breakfast.Continue walking Antoine and eating a balanced diet. Related to Class 3 Obesity We will check A1c to day.I do think that using a continuous glucose monitor like the Dexcom is a good idea to monitor your blood sugars.Please check what you have from [employer] equipment and let me know what I can send in for you.Please get a diabetic eye exam. Related to Type 2 diabetes mellitus with diabetic neuropathy, unspecified Giving encouragement to exercise Related to Body mass index (BMI) 40.0-44.9, adult Dietary management e ducation, guidance, and counseling Related to Body mass index (BMI) 40.0-44.9, adult Disease process Your goal is to get your weight trending in the right direction with increasing your activity and making healthy dietary choices.Hopefully [employer] will help with this Related to Morbid (severe) obesity due to excess calories Your goal is to work on taking your medications regularly.You're overdue for your eye exam.We will check your A1c again today Related to Type 2 diabetes mellitus with diabetic neuropathy, unspecified Work on taking your atorvastatin daily as prescribed.We will check cholesterol levels today Related to Other hyperlipidemia Your blood pressure is well controlled today.Continue your current medications.We will check routine labs today.Please call the office with any issues, questions, or concerns prior to your next appointment.Follow up again in 4 months Related to Essential (primary) hypertension Disease process Dietary management e ducation, guidance, and counseling Related to Body mass index (BMI) 40.0-44.9, adult Giving encouragement to exercise Related to Body mass index (BMI) 40.0-44.9, adult Weight is down 15 po unds since her last appointment.Continue to work on healthy dietary choices.Try to incorporate some exercise into your routine Related to Morbid (severe) obesity due to excess calories Please call the offi ce if you develop issues with chest pain, palpitations, or shortness of breath Related to Family history of ischemic heart disease and other diseases of the circulatory system Decrease your Wellbu lydia to every other day for 2 weeks then stop.Let me know if your depression worsens Related to Major depressive disorder, recurrent, in partial remission Continue your medica tions as prescribed.Continue to work on healthy dietary choices to better manage her diabetes.You are overdue for your eye exam; please try to schedule this.We will check your hemoglobin A1c again today and call tomorrow with results. Status: Able to self-manage condition. Goals: Your goal is to work on healthy eating habits. Barriers: No barriers to goal achievement have been identified. Related to Type 2 diabetes mellitus with diabetic neuropathy, unspecified We will check your v itamin D level again today Related to Vitamin D deficiency, unspecified Continue your atorva statin.We will check your cholesterol levels today Related to Other hyperlipidemia Your blood pressure is well controlled today.Continue your current medications.We will check routine labs today.Please call the office with any issues, questions, or concerns prior to your next appointment.Follow up again in 6 months Related to Essential (primary) hypertension Dietary management e ducation, guidance, and counseling Related to Body mass index (BMI) 39.0-39.9, adult Disease process Giving encouragement to exercise Related to Body mass index (BMI) 39.0-39.9, adult trial of rybelsus gi trisha to help with sugars as well as weight loss Related to Morbid (severe) obesity due to excess calories Status: Meeting deysi tment plan goals. Goals: Your goal is to manage your medicine. No barriers to goal achievement have been identified.Continue with current medication. Related to Major depressive disorder, single episode, unspecified Your blood pressure is well controlled todayno change in medications at this timemonitor from home and call if you notice it consistently above 140/90 Related to Essential hypertension think about seeing a junior legal secretary and call me if you change your mind Related to Family history of ischemic heart disease and other diseases of the circulatory system please continue the atorvastatinwe will check liver enzymes today Related to Other hyperlipidemia Status: Meeting deysi tment plan goals. Goals: Your goal is to work on healthy eating habits.We will check A1c todayyou are due for diabetic eye exam yearlyplease work on exercise Related to Type 2 diabetes mellitus with diabetic neuropathy, without long-term current use of insulin Disease process Giving encouragement to exercise Related to Body mass index (BMI) 40.0-44.9, adult Dietary management e ducation, guidance, and counseling Related to Body mass index (BMI) 40.0-44.9, adult think about seeing a junior legal secretary and call me if you change your mind Related to Family history of ischemic heart disease and other diseases of the circulatory system Status: Meeting deysi tment plan goals. Goals: Your goal is to manage your medicine. No barriers to goal achievement have been identified.Continue with current medication. Related to Major depressive disorder, single episode, unspecified Your blood pressure is well controlled todayno change in medications at this timemonitor from home and call if you notice it consistently above 140/90 Related to Essential hypertension work on nutritious d iet, exercise, and try to avoid processed foods and high-sugar foods.aim for 30 minutes of exercise at least 5 days a week.return to me in 6 monthscall me with questions or concernslabs checked Related to Morbid (severe) obesity due to excess calories I will recheck your vitamin d levels today Related to Vitamin D deficiency please continue the atorvastatinwe will check liver enzymes today Related to Other hyperlipidemia Status: Meeting deysi tment plan goals. Goals: Your goal is to work on healthy eating habits.We will check A1c todayyou are due for diabetic eye exam yearlyplease work on exercise Related to Type 2 diabetes mellitus with diabetic neuropathy, without long-term current use of insulin Disease process Giving encouragement to exercise Related to Body mass index (BMI) 40.0-44.9, adult Dietary management e ducation, guidance, and counseling Related to Body mass index (BMI) 40.0-44.9, adult you are due for Mamm ogram this month.Call with any questions or concernscbc cmp A1c micro todayreturn in 6 monthsyou decline vaccines Please continue to follow COVID precautions including: wearing a mask or face covering in public, washing your hands frequently and remaining socially distant when in public. Related to Encounter for screening mammogram for malignant neoplasm of breast please complete the cologuard Re lated to Screening for malignant neoplasm of colon Your blood pressure is well controlled todayno change in medications at this timemonitor from home and call if you notice it consistently above 140/90 Related to Essential hypertension Status: Meeting deysi tment plan goals. Goals: Your goal is to work on healthy eating habits.We will check A1c todayyou are due for diabetic eye examplease work on exercise Related to Type 2 diabetes mellitus with diabetic neuropathy, without long-term current use of insulin please continue the atorvastatinwe will check liver enzymes today Related to Other hyperlipidemia I will recheck your vitamin d levels today Related to Vitamin D deficiency work on nutritious d iet, exercise, and try to avoid processed foods and high-sugar foods.aim for 30 minutes of exercise at least 5 days a week. Related to Morbid (severe) obesity due to excess calories Status: Meeting deysi tment plan goals. Goals: Your goal is to manage your medicine. No barriers to goal achievement have been identified.I want you to work on getting time to yourselfyou need time to exercise to manage your stress and to take time for yourself.we will continue on your current medicationplease let me know if you would like to take anything as needed (buspirone) Related to Major depressive disorder, single episode, unspecified Disease process Giving encouragement to exercise Related to Body mass index (BMI) 40.0-44.9, adult Dietary management e ducation, guidance, and counseling Related to Body mass index (BMI) 40.0-44.9, adult Weight is down 10.8 pounds since February.Keep up the great work with diet and exercise! Related to Morbid (severe) obesity due to excess calories We will check your v itamin D level today Related to Vitamin D deficiency Great work on the we ight loss and taking your medications every day.We will check your A1c again today.I recommend checking you sugars once daily to monitor your diabetes.Please make sure you see your women specialist for an eye exam once per year - please scheduleFoot care is important. Check your feet every day, and notify us immediately of any problems. The [place] [employer] recommends 30 minutes of exercise daily. If you would like to see our dietitian for more information on a proper diet, please let us know.Status: Not meeting treatment plan goals. Goals: Your goal is to manage your medicine. Barriers: No barriers to goal achievement have been identified. Related to Type 2 diabetes mellitus with diabetic neuropathy, without long-term current use of insulin This is chronic.We d iscussed following up with cardiology for further evaluation; please call when you're ready.In the meantime use over the counter pain cream like icy/hot or pain patch like salon pasheating pad as neededTylenol Arthritis 650mg 1-2 tablets every 8 hours as neededWatch for chest pain/pressure, heart racing, shortness of breath, nausea, dizziness, sweating; call 911 if you have these symptoms Related to Left arm pain Your blood pressure is well controlled today.Continue your current medications.We will check routine labs today.CBC, CMP, lipid panel, TSH, A1c, intact PTH, vitamin D and urinalysis.Continue with social distancing.AVOID CROWDS AVOID TOUCHING YOUR FACE AVOID UNNECESSARY TRAVEL. WASH HANDS OFTEN. CALL WITH QUESTIONS/CONCERNS Please call the office with any issues, questions, or concerns prior to your next appointment.Follow up again in 6 months Related to Essential hypertension Be sure to get plent y of rest, stay hydrated, try to improve nutritionExercise as toleratedcontinue to de-stress with activities you enjoyCall for any worsening symptoms of depression Status: Able to self-manage condition. Barriers: No barriers to goal achievement have been identified. Goals: Your goal is to learn about relapse of depression. Related to Major depressive disorder, single episode, unspecified Will check cholester ol levels todaycontinue atorvastatinlow fat, low cholesterol diabetic diet Related to Mixed hyperlipidemia Dietary management e ducation, guidance, and counseling Related to Body mass index (BMI) 40.0-44.9, adult Giving encouragement to exercise Related to Body mass index (BMI) 40.0-44.9, adult Medication management increase water and v eggiesmammogram, well woman/pap, and colonoscopy to be ordered by ObGyn Related to Morbid (severe) obesity due to excess calories we can get the xray of your when you are readywe discussed the nerve pain from the neck to armyou decline imaging or physical therapywe also discussed following up with cardiology for further evaluation, you decline at this timein the meantime use over the counter pain cream like icy/hot or pain patch like salon pasheating pad as neededTylenol Arthritis 650mg 1-2 tablets every 8 hours as neededWatch for chest pain/pressure, heart racing, shortness of breath, nausea, dizziness, sweating; call 911 if you have these symptoms Related to Left arm pain will send prescripti on for diflucanif no improvement, please discuss the condition with the ObGyn at the scheduled appointment this monthcall if it worsens Related to Vaginal irritation Be sure to get plent y of rest, stay hydrated, try to improve nutritionExercise as toleratedcontinue to de-stress with activities you enjoyCall for any worsening symptoms of depression Status: Able to self-manage condition. Barriers: No barriers to goal achievement have been identified. Goals: Your goal is to learn about relapse of depression. Related to Major depressive disorder, single episode, unspecified Will check cholester ol levels todaycontinue atorvastatinlow fat, low cholesterol diabetic diet Related to Mixed hyperlipidemia bp is higher than id eal - you did not take medications todayrecommend taking the medication as directed every dayuncontrolled blood pressure can lead to serious consequences including but not limited to kidney problems, heart enlargement, and strokeContinue current medicationsAvoid salty foods.labs todayflu shot this fallreturn in 4 monthscall with questions/concerns AVOID CROWDS - REMAIN 6 FEET APART FROM PEOPLE. WEAR A MASK. AVOID TOUCHING YOUR FACE. AVOID UNNECESSARY TRAVEL. WASH HANDS OFTEN. CALL WITH QUESTIONS/CONCERNS Related to Essential hypertension Recommend checking b lood sugars daily at leastdrink plenty of waterwill check kidney functionPlease make sure you see your women specialist for an eye exam once per year - please scheduleFoot care is important. Check your feet every day, and notify us immediately of any problems. The [place] [employer] recommends 30 minutes of exercise daily. If you would like to see our dietitian for more information on a proper diet, please let us know.Status: Not meeting treatment plan goals. Goals: Your goal is to monitor your diabetes. Barriers: Include(s) caring for spouse Related to Type 2 diabetes mellitus with diabetic nephropathy, without long-term current use of insulin Giving encouragement to exercise Related to Body mass index (BMI) 40.0-44.9, adult Disease process Dietary management e ducation, guidance, and counseling Related to Body mass index (BMI) 40.0-44.9, adult bp is higher than id eal - you did not take medications todayrecommend taking the medication as directed every dayuncontrolled blood pressure can lead to serious consequences including but not limited to kidney problems, heart enlargement, and strokeContinue current medicationsAvoid salty foods.return in 3 months - will get labs then - be sure not to eatcall with questions/concerns Related to Essential hypertension Will check cholester ol levels todaycontinue atorvastatinlow fat, low cholesterol diabetic diet Related to Mixed hyperlipidemia increase water and v eggiesexercise as tolerated Related to Morbid (severe) obesity due to excess calories Recommend checking b lood sugars daily at leastdrink plenty of waterwill check kidney functionPlease make sure you see your women specialist for an eye exam once per year. Foot care is important. Check your feet every day, and notify us immediately of any problems. The [place] [employer] recommends 30 minutes of exercise daily. If you would like to see our dietitian for more information on a proper diet, please let us know.Status: Not meeting treatment plan goals. Goals: Your goal is to monitor your diabetes. Barriers: Include(s) caring for spouse Related to Type 2 diabetes mellitus with diabetic nephropathy, without long-term current use of insulin Be sure to get plent y of rest, stay hydrated, try to improve nutritionExercise as tolerated, you can try yoga, meditation, or essential oilsCall for any worsening symptoms of depression Status: Able to self-manage condition. Barriers: No barriers to goal achievement have been identified. Goals: Your goal is to learn about relapse of depression. Related to Major depressive disorder, single episode, unspecified Disease process Giving encouragement to exercise Related to Body mass index (BMI) 40.0-44.9, adult Dietary management e ducation, guidance, and counseling Related to Body mass index (BMI) 40.0-44.9, adult Giving encouragement to exercise Related to Body mass index (BMI) 40.0-44.9, adult Dietary management e ducation, guidance, and counseling Related to Body mass index (BMI) 40.0-44.9, adult Giving encouragement to exercise Related to Body mass index (BMI) 40.0-44.9, adult will check the circu lation to the legs todaytry to walk often to increase blood flowthis helps prevent problems associated with diabetes Related to Decreased pedal pulses Follow with OB-[employer] C[employer] nathaly zamudio February, she set up the CologuardThis is every 3 years Related to Encounter for screening for malignant neoplasm of colon you have a lot of st ress right nowtry to make smart food choices, drink plenty of water, get good restexercise as tolerated Related to Morbid (severe) obesity due to excess calories Status: Able to self -manage condition. Barriers: you are a caregiver at homeOur goal is to look into an abdominal glucose meterTry to check the blood sugars continue to avoid sugar/carbsyou are due for a diabetic eye exam, this is done yearly Goals: Your goal is to monitor your diabetes. Related to Type 2 diabetes mellitus with diabetic nephropathy, without long-term current use of insulin Blood pressure is at treatment goal on current diet and medication. Please continue your current treatment.Avoid salty foodexercise as toleratedReturn in 6 monthscall if you need anything sooner Related to Essential hypertension Diabetes Health Report Disease process Dietary management e ducation, guidance, and counseling Related to Body mass index (BMI) 40.0-44.9, adult Disease process Giving encouragement to exercise Related to Body mass index (BMI) 40.0-44.9, adult Disease process Assessments Type Assessment Date No Information Patient Care Teams Name Effective Dates (start - stop) Status Members No Information
--- OUTSIDE RECORDS SUMMARY | 2024-11-01 07:26 | XMS_ITS | Clinical Summary ---
Author Organization [facility] Address [address] [place] [id number] Phone Care Team Providers Care Shearing Machine Feeder Name Role Phone Chey Newton DO Primary Care Provider [phone] Allergies No known active allergies Medications cetirizine (ZyrTEC) 10 mg tablet Take 10 mg by mouth daily. Active metFORMIN (GLUCOPHAGE) 500 mg tablet Take by mouth 2 times daily with meals. unknown Active atorvastatin calcium (ATORVASTATIN ORAL) Take by mouth. Activ e PROGESTERONE IM Inject by intramuscular injection. Active PROGESTERONE MICRONIZED ORAL Take by mouth. Activ e Social History Tobacco Use Types Packs/Day Years Used Date Smoking Tobacco: Never Smokeless Tobacco: Never Tobacco Cessation:Counseling Given: Not Answered Alcohol Use Standard Drinks/Week Comments Never 0 (1 standard drink = 0.6 oz pur e alcohol) Feeling Safe Answer Date Recorded Are you in a relationship wi th someone who hurts you emotionally and/or physically? No 10/07/2022 Comments No Sex and Gender Information Value Date Recorded Sex Assigned at Not on file Legal Sex Female 4:28 PM CDT Gender Identity Not on file Sexual Orientation Not on file Last Filed Vital Signs Vital Sign Reading Time Taken Comments Blood Pressure 150/86 10/07/2022 11:12 PM CDT Pulse 96 10/07/2022 11:12 PM CDT Temperature 37.1 C (98.7 F) 10/07/2022 11:12 PM CDT Respiratory Rate 18 10/07/2022 11:12 PM CDT Oxygen Saturation 96% 10/07/2022 11:12 PM CDT Inhaled Oxygen Concentration - - Weight 98.4 kg (217 lb) 10/07/2022 4:33 PM CDT Height 152.4 cm (5') 10/07/2022 4:33 PM CDT Body Mass Index 42.38 10/07/2022 4:33 PM CDT Plan of Treatment Health Maintenance Due Date Last Done Comments DIABETES ANNUAL FOOT EXAM 1983 DIABETES ANNUAL RETINAL EXAM 1983 DIABETES MICROALBUMIN ANNUAL SCREEN 1983 LDL CHOLESTEROL ANNUAL 1983 DTAP/TDAP/TD VACCINES (1 - Tdap) 1984 HEPATITIS B VACCINES (1 of 3 - 19+ 3-dose series) 1984 HPV/Cotest (21-29) 1986 CERVICAL CANCER SCREENING 1995 HPV/Cotest (30-65) 1995 PAP SMEAR 1995 BREAST CANCER SCREENING 2005 COLORECTAL SCREENING 2010 Colorectal Cancer Screening 2010 FIT-DNA Q 3 years 2010 FIT/FOBT Q 1 year 2010 Flex Sig/CT Colonography Q 5 years 2010 ZOSTER VACCINE (1 of 2) 2015 DIABETES HBA1C Q 6 MONTHS 10/23/20222021, 10/25/2021, 03/15/2021, Additional history exists INFLUENZA VACCINE (#1) 2024 Insurance BLUE ACCESS CHOICE Care Teams Shearing Machine Feeder Relationship Specialty Start Date End Date Chey Newton DO [address] [place] [address] PCP - General Internal Medicine 10/07/22
== END 2024-11-01 07:19 | disposition home or self-care (01) ==
LOC: ANHIMG 07:24
PROVIDERS: PCP Internal Medicine; Visit Provider Nurse Practitioner
DX: Z12.31 Encounter for screening mammogram for malignant neoplasm of breast (principal); Z78.0 Asymptomatic menopausal state; Z13.820 Encounter for screening for osteoporosis
CPT/HCPCS: 77063; 77067; 77080